=== PATIENT | female | born 1990 | race Caucasian/White ===

== ENCOUNTER 2023-03-05 14:31 | Emergency (ER) | payer MEDICAID ==
[2023-03-05] MEDS ORDERED: DEXAMETHASONE 10 MG/ML VIAL IVP STA (15:15)
[2023-03-05] MEDS ORDERED: HYDROmorphone 1 MG/ML CARPUJECT IVP STA ×2 (15:15→16:54)
[2023-03-05] MEDS ORDERED: methocarbamoL 500 MG TABLET PO STA (15:15)
[2023-03-05] MEDS ORDERED: KETOROLAC 30 MG/ML VIAL IVP STA (15:15)
--- NOTE | 2023-03-05 15:22 | ED Physician Documentation ---
PD HPI BACK PAIN - Stated complaint Stated Complaint: BACK PX - Chief complaint Chief Complaint: Back Pain - History obtained from History obtained from: Patient - History of Present Illness Timing - onset: Today Timing - duration: Hours (1) Timing - details: Abrupt onset Pain level max: 9 Pain level now: 9 Location: Mid Quality: Pain, Spasm Associated symptoms: No: Fever, Weakness, Numbness, Incontinent of urine, Unable to urinate, Hematuria, Incontinent of stool Worsened by: Movement, Lifting Contributing factors: Lifting, Twisting. No: Anticoagulated, Cancer, IVDA - Additional information Additional information: Patient is a 33-year-old female who presents to the emergency department with right-sided mid back pain. She states that she was moving a dresser today that had a record player and it when she felt a sharp pain in her back. No loss of bowel or bladder control. No fevers. No headache, no neck or other back pain. 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 : Chronic bladder infection HEENT: None Psych: None Musculoskeletal: None Derm: None - Past Surgical History Past Surgical History: Yes General: Appendectomy /CIRCUS PERFORMER: Hysterectomy HEENT: Tonsil/Adenoidectomy, Other - Present Medications Home Medications: Ambulatory Orders Medication Instructions Recorded Confirmed Albuterol Sulfate [Proair Hfa 1 - 2 puffs INH Q4H PRN 04/15/20 04/15/20 Inhaler] Budesonide/Formoterol Fumarate 0 puffs 04/29/21 [Symbicort 80-4.5 Mcg Inhaler] Ondansetron Odt [Zofran] 4 mg TL Q6H PRN #10 tablet 04/29/21 Oxycodone HCl/Acetaminophen 1 - 2 each PO Q6H PRN #14 tablet 04/29/21 [Percocet 5-325 mg Tablet] Meloxicam [Mobic] 7.5 mg PO BID PRN #20 tablet 03/05/23 Oxycodone HCl/Acetaminophen 1 - 2 each PO Q6H PRN #14 tablet 03/05/23 [Percocet 5-325 mg Tablet] MDD 6 tabs methocarbamoL [Robaxin] 500 mg PO Q6H PRN #20 tablet 03/05/23 methylPREDNISolone [Medrol] 4 mg PO DAILY #1 each 03/05/23 - Allergies Allergies/Adverse Reactions: Allergies Allergy/AdvReac Type Severity Reaction Status Date / Time No Known Drug Allergies Allergy Verified 02/04/23 10:28 - Social History Does the pt smoke?: No Smoking Status: Never smoker Does the pt drink ETOH?: No Does the pt have substance abuse?: Yes - Immunizations Immunizations are current?: Yes PD ED PE NORMAL - Vitals Vital signs reviewed: Yes - General General: Alert and oriented X 3, No acute distress - HEENT HEENT: PERRL, Moist mucous membranes - Neck Neck: Supple, no meningeal sign - Cardiac Cardiac: RRR, Strong equal pulses - Respiratory Respiratory: No respiratory distress, Clear bilaterally - Abdomen Abdomen: Soft, Non tender, Non distended - Back Back: Other (No midline tenderness to palpation or percussion. No step-off or deformity. Paraspinal spasm mid to upper lumbar/lower thoracic area. Right greater than left.) - Derm Derm: Warm and dry - Extremities Extremities: No edema, No calf tenderness / cord - Neuro Neuro: Alert and oriented X 3, third helper 2-12 intact, No motor deficit, No sensory deficit, Normal speech, Other (Normal bilateral lower extremity patellar and ankle jerk reflexes. Normal great toe extension bilaterally. no saddle anesthesia) - Psych Psych: Normal mood, Normal affect Results - Vitals Vitals: Vital Signs - 24 hr 03/05/23 03/05/23 03/05/23 14:34 14:40 16:40 Temperature 37 C 37.0 C Heart Rate 80 80 80 Respiratory 20 20 16 Rate Blood Pressure 147/104 H 147/100 H 130/88 H O2 Saturation 98 98 100 03/05/23 18:00 Temperature 36.8 C Heart Rate 66 Respiratory 16 Rate Blood Pressure 130/90 H O2 Saturation 100 Oxygen O2 Source Room air - Rads (name of study) CT T spine Relevant Findings:: Final report received, See rad report CT L spine Relevant Findings:: Final report received, See rad report PD Medical Decision Making - ED course Complexity details: reviewed results, re-evaluated patient, considered differential (No cauda equina, no spinal epidural abscess, no fracture, no aortic dissection or evidence of aneursym rupture), d/w patient, d/w family ED course: No acute findings on CT of the thoracic spine or lumbar spine. Pain was well controlled in the emergency department and patient is able to ambulate well. No evidence of cauda equina, epidural abscess. CT scans were ordered because the patient could not stand for x-rays and could not move to tolerate x-ray positioning. We will place on pain medication, muscle relaxants and steroids at home and have her follow-up with her PCP for further care. Patient counseled regarding signs and symptoms for which I believe and urgent re-evaluation would be necessary. Patient with good understanding of and agreement to plan and is comfortable going home at this time This document was made in part using voice recognition software. While efforts are made to proofread this document, sound alike and grammatical errors may occur. Departure - Departure Disposition: 01 Home, Self Care Clinical Impression: Back spasm Back pain Qualifiers: Back pain location: back pain in other location Chronicity: acute Qualified Code(s): M54.9 - Dorsalgia, unspecified Condition: Good Instructions: ED Neck Back Pain General Follow-Up: your,doctor in 1 week [Other] Prescriptions: methylPREDNISolone [Medrol] 4 mg PO DAILY #1 each Meloxicam [Mobic] 7.5 mg PO BID PRN #20 tablet PRN Reason: Pain Oxycodone HCl/Acetaminophen [Percocet 5-325 mg Tablet] 1 - 2 each PO Q6H PRN #14 tablet MDD 6 tabs PRN Reason: pain methocarbamoL [Robaxin] 500 mg PO Q6H PRN #20 tablet PRN Reason: muscle spasm Comments: Your prescriptions were sent to [facility] in [place]. Please follow-up with your doctor as needed for further care. This should improve over the next few days. Continue to gently stretch your back at home. Ice and heat may help as well. Your CT scan does not show any acute abnormalities today. If your symptoms persist, your doctor may want to pursue an MRI. I am prescribing a short course of narcotic pain medication for you. These are potentially dangerous and addictive medications that should be used carefully. These medications may constipate you. Take an behj-daf-xugavev stool softener (docusate) twice daily with plenty of water while taking these medications. If you go 24 hours without a bowel movement, take yinh-bur-krzyuxb miralax, per package instructions. Do not drink or drive while taking these medications. If you received narcotic or sedating medications while in the emergency department, do not drive for 24 hours. Store this medication in a safe, secure place and out of reach of children. It is a violation of federal law to give or sell this medication to another person or to use in a manner other than prescribed. The ED will not refill narcotic prescriptions, including prescriptions lost or stolen. To dispose of unwanted medications: 1. [facility] [address] in [place] has a medication drop box. They accept prescription medications (in pill form) Tuesday through Tuesday 9:00 a.m. to 5:00 p.m. 2. The [facility] [employer] accepts prescription medications (in pill form only) for disposal year round. Call for more information. 3. Contact the [facility] for the next [facility] sponsored prescription drug collection event. , [phone], or [phone]; Discharge Date/Time: 03/05/23 19:17
[2023-03-05 16:48] VITALS: O2SAT 100
--- NOTE | 2023-03-05 18:28 | CT Report ---
PROCEDURE: CT thoracic spine without contrast INDICATIONS: back pain, R mid back T10-L2 TECHNIQUE: Noncontrast 3 mm thick sections acquired through the region of interest in the thoracic spine. Sagit annita and coronal reformats were then constructed. For radiation dose reduction, the following was used : automated exposure control, adjustment of mA and/or kV according to patient size. COMPARISON: None. FINDINGS: Image quality: Excellent. Bones: There is normal overall bony alignment. No acute vertebral body compression fractures. No s uspicious sclerotic or lytic bony lesions. Central osseous canal is of normal overall caliber. Soft tissues: No paravertebral masses or hematomas. Visualized posteromedial lungs appear clear. IMPRESSION: Normal CT thoracic spine Reviewed by: Lemuel Abdalla MD on 03/05/2023 5:27 PM ALEJANDRO Approved by: Lemuel Abdalla MD on 03/05/2023 5:27 PM ALEJANDRO Station ID: [id number]
--- NOTE | 2023-03-05 18:28 | CT Report ---
PROCEDURE: CT lumbar spine without contrast INDICATIONS: back pain, R mid back T10-L2 TECHNIQUE: Noncontrast 3 mm thick sections acquired from the T12 level to the sacrum. Sagittal and coronal refo rmats were constructed. For radiation dose reduction, the following was used: automated exposure co ntrol, adjustment of mA and/or kV according to patient size. COMPARISON: None. FINDINGS: Image quality: Excellent. Bones: There is normal bony alignment. No acute vertebral body compression fractures. No suspiciou s lytic or blastic bony lesions. Central spinal caliber is of normal overall caliber. No pars defec ts. At the disc levels, no CT evidence of disc protrusion or significant canal stenosis. Soft tissues: No retroperitoneal masses or hematomas. Visualized aorta is normal in caliber. IMPRESSION: Normal CT of the lumbar spine Reviewed by: Lemuel Abdalla MD on 03/05/2023 5:26 PM ALEJANDRO Approved by: Lemuel Abdalla MD on 03/05/2023 5:26 PM AKDT Station ID: [id number]
[2023-03-05 18:42] VITALS: BP 130/90
[2023-03-05] MEDS ORDERED: oxyCODONE/ACET 5/325 Prepack 4 PO STA (18:53)
== END 2023-03-05 19:17 | disposition home or self-care (01) ==
LOC: ED 14:31
DX: M62.830 Muscle spasm of back (principal)
CPT/HCPCS: 72128; 72131; 96374; 96375; 96376; 99283; 99284; A9270; J1170

== ENCOUNTER 2023-07-08 08:00 | Outpatient (CLI) | payer MEDICAID ==
[2023-07-08 12:29] LABS: BILIRUBIN,URINE NEGATIVE (NEGATIVE); GLUCOSE, URINE (UA) NEGATIVE (NEGATIVE); KETONES,URINE (UA) NEGATIVE (NEGATIVE); LEUKOCYTE ESTERASE, URINE NEGATIVE (NEGATIVE); NITRITE,URINE NEGATIVE (NEGATIVE); OCCULT BLOOD,URINE NEGATIVE (NEGATIVE); PH,URINE 6.5 PH (5.0-7.5); PROTEIN,URINE NEGATIVE (NEGATIVE); UROBILINOGEN,URINE 0.2 (NORMAL) E.U./dL (NORMAL)
[2023-07-08 13:10] LABS: BACTERIA,URINE Moderate /HPF (None Seen); CLARITY,URINE SL. CLOUDY (CLEAR); RBC,URINE None Seen /HPF (0-5); SQUAMOUS EPITHELIAL CELL,UR MANY Squamous (<= Few); WBC,URINE 0-3 /HPF (0-5)
== END 2023-07-08 23:59 | disposition home or self-care (01) ==
LOC: LAB.WCP 08:00
PROVIDERS: ATTEND Physician Assistant
DX: R10.2 Pelvic and perineal pain (principal)
CPT/HCPCS: 81001; 87086

== ENCOUNTER 2023-07-19 09:47 | Outpatient (CLI) | payer MEDICAID | END 2023-07-19 09:48 | disposition home or self-care (01) | LOC: LAB.N 09:47 | PROVIDERS: ATTEND Physician Assistant | DX: R10.2 Pelvic and perineal pain (principal) | CPT/HCPCS: 87077; 87086; 87181 ==

== ENCOUNTER 2023-08-16 09:19 | Outpatient (CLI) | payer MEDICAID ==
[2023-08-16] MEDS: ALBUTEROL 1 PUFF INH STA (10:54)
== END 2023-08-16 09:20 | disposition home or self-care (01) ==
LOC: RT 09:19
PROVIDERS: ATTEND Physician Assistant
DX: J45.50 Severe persistent asthma, uncomplicated (principal)
CPT/HCPCS: 94060; 94729

== ENCOUNTER 2023-10-03 11:50 | Outpatient (CLI) | payer MEDICAID ==
--- NOTE | 2023-10-03 14:05 | XRAY Report ---
PROCEDURE: Chest 2V INDICATIONS: SHORTNESS OF BREATH TECHNIQUE: 2 views of the chest were acquired. COMPARISON: Thoracic CT 03/05/2023. FINDINGS: Surgical changes and devices: None. Lungs and pleura: No pleural effusions or pneumothorax. Lungs are clear. Mediastinum: Mediastinal contours appear normal. Heart size is normal. Bones and chest wall: No suspicious bony lesions. Overlying soft tissues appear unremarkable. IMPRESSION: No acute cardiopulmonary process. Reviewed by: Shabbir Andrew MD on 10/03/2023 2:03 PM PDT Approved by: Shabbir Andrew MD on 10/03/2023 2:03 PM PDT Station ID: [id number]
== END 2023-10-03 11:51 | disposition home or self-care (01) ==
LOC: DI 11:50
PROVIDERS: ATTEND Physician Assistant
DX: R06.02 Shortness of breath (principal)

== ENCOUNTER 2023-11-29 13:50 | Outpatient (CLI) | payer MEDICAID ==
--- NOTE | 2023-11-29 17:34 | XRAY Report ---
PROCEDURE: Wrist 3+V RT INDICATIONS: FOREARM PAIN, RIGHT TECHNIQUE: 3 views of the wrist were acquired. COMPARISON: None. FINDINGS: Bones: No fractures or dislocations. No suspicious bony lesions. Soft tissues: No suspicious soft tissue calcifications or masses. IMPRESSION: No acute bony abnormality. Reviewed by: Hollis Whiting MD on 11/29/2023 5:33 PM PDT Approved by: Hollis Whiting MD on 11/29/2023 5:33 PM PDT Station ID: [id number]
--- NOTE | 2023-11-29 17:35 | XRAY Report ---
PROCEDURE: Forearm RT INDICATIONS: FOREARM PAIN, RIGHT TECHNIQUE: 2 views of the forearm were acquired. COMPARISON: None. FINDINGS: Bones: No fractures or dislocations. No suspicious bony lesions. Soft tissues: No suspicious soft tissue calcifications or masses. IMPRESSION: No acute bony abnormality. Reviewed by: Hollis Whiting MD on 11/29/2023 5:33 PM PDT Approved by: Hollis Whiting MD on 11/29/2023 5:33 PM PDT Station ID: [id number]
== END 2023-11-29 15:37 | disposition home or self-care (01) ==
LOC: DI.N 13:50
PROVIDERS: ATTEND Physician Assistant Medical
DX: M79.631 Pain in right forearm (principal); M25.531 Pain in right wrist

== ENCOUNTER 2023-11-29 15:55 | Emergency (ER) | payer MEDICAID ==
[2023-11-29 16:05] VITALS: O2SAT 100
--- NOTE | 2023-11-29 17:45 | ED Physician Documentation ---
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 Gradual onset of pain in dorsal wrist c/w teonditis. No impactful injury, so doubt fracture/bone lesion.). No: Fall, Twist Timing - onset: How many weeks ago ( - 06/28) Timing - details: Gradual onset, Still present Worsened by: Moving, Palpating (dorsal wrist) Associated symptoms: Swelling (feels some swelling dorsal wrist. No redness nor berna. tender dorsal wrist and much in volar/carpal tunnel area. some feeling of swelling dorsally. Not tender base of thumb. ROM fo the wrist limited for extension, iwth worse pain against resistance.). 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 : Chronic bladder infection HEENT: None Psych: None Musculoskeletal: None Derm: None - Past Surgical History Past Surgical History: Yes General: 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: Hysterectomy HEENT: Tonsil/Adenoidectomy, Other - Present Medications Home Medications: Ambulatory Orders Medication Instructions Recorded Confirmed Albuterol Sulfate [Proair Hfa 1 - 2 puffs INH Q4H PRN 04/15/20 04/15/20 Inhaler] Budesonide/Formoterol Fumarate 0 puffs 04/29/21 [Symbicort 80-4.5 Mcg Inhaler] Ondansetron Odt [Zofran] 4 mg TL Q6H PRN #10 tablet 04/29/21 Oxycodone HCl/Acetaminophen 1 - 2 each PO Q6H PRN #14 tablet 04/29/21 [Percocet 5-325 mg Tablet] Meloxicam [Mobic] 7.5 mg PO BID PRN #20 tablet 03/05/23 Oxycodone HCl/Acetaminophen 1 - 2 each PO Q6H PRN #14 tablet 03/05/23 [Percocet 5-325 mg Tablet] MDD 6 tabs methocarbamoL [Robaxin] 500 mg PO Q6H PRN #20 tablet 03/05/23 methylPREDNISolone [Medrol] 4 mg PO DAILY #1 each 03/05/23 HYDROcod/ACETAM 5/325 [[place] 5/325] 1 ea PO Q6H PRN #15 tablet 11/29/23 Lidocaine Patch 5% [Lidoderm Patch] 1 patch TOP DAILY PRN #10 patch 11/29/23 Meloxicam [Mobic] 7.5 mg PO BID 10 Days #20 tablet 11/29/23 - Allergies Allergies/Adverse Reactions: Allergies Allergy/AdvReac Type Severity Reaction Status Date / Time No Known Drug Allergies Allergy Verified 11/29/23 16:04 - Social History Does the pt smoke?: No Smoking Status: Never smoker Does the pt drink ETOH?: No Does the pt have substance abuse?: Yes - Immunizations Immunizations are current?: Yes PD ED PE NORMAL - Vitals Vital signs reviewed: Yes - General General: Alert and oriented X 3, Well developed/nourished - Cardiac Cardiac: RRR, No murmur - Respiratory Respiratory: No respiratory distress, Clear bilaterally - Derm Derm: Normal color, Warm and dry - Extremities Extremities: No edema, Other (dorsal wrist and forearm with some soft tissue swelling. Not tender volar wrist. No edema in fingers. Good cap refill. Minimal crepitance feeling in forearm with extension c/w tendonitis. ) - Neuro Neuro: Alert and oriented X 3, No motor deficit, No sensory deficit, Normal speech Results - Vitals Vitals: Oxygen O2 Source Room air - Rads (name of study) duple US right arm Relevant Findings:: Prelim report reviewed (no DVT), See rad report PD Medical Decision Making - ED course Complexity details: reviewed results (dulplex US of right upper arm ithout any DVT. ), considered differential (clinically sounds like tendonits of wrist. Pain radiating up to the upper arm and shoudler without tenderness there is presumed nerve irritation. No edema in upper arm nor axillary tenderness. Low suspicion for DVT by me but sent for US by Walk In. ), d/w patient Departure - Departure Disposition: 01 Home, Self Care Clinical Impression: Right wrist tendonitis Condition: Stable Record reviewed to determine appropriate education?: Yes Follow-Up: [facility] [Provider Group] Prescriptions: Lidocaine Patch 5% [Lidoderm Patch] 1 patch TOP DAILY PRN #10 patch PRN Reason: pain Meloxicam [Mobic] 7.5 mg PO BID 10 Days #20 tablet HYDROcod/ACETAM 5/325 [[place] 5/325] 1 ea PO Q6H PRN #15 tablet PRN Reason: Pain Comments: Your ultrasound does not show any signs of clots. Clinically this sounds like some wrist tendinitis given the pain with motion and will crackly feel on movement. That will be the tendon not gliding smoothly through the sheath because of inflammation. Use the wrist splint during the day and with activity.. Gentle range of motion periodically with the wrist. I would treat with a combination of anti-inflammatories. We can use a long- acting twice daily called meloxicam with food. You can also apply lidocaine patch to the area to help with some of the local pain. Activity as tolerated but you may want to avoid heavy use of it over the next several days to week. Add Tylenol 500 to 650 mg 4 times daily for pain. Use hydrocodone/acetaminophen if needed for worse pain. Follow-up with Ortho your primary care if not improved over the next week or so and resolved within 1 to 2 weeks. There are further treatments that are potentially available if it is not improving with just this. I sent your prescriptions to your preferred pharmacy. I am prescribing a short course of narcotic pain medication for you. These are potentially dangerous and addictive medications that should be used carefully. These medications may constipate you. Take an bxcl-eui-fpfoncq stool softener such as docusate twice daily with plenty of water while taking these medications. If you go 24 hours without a bowel movement, take agye-jgt-xfxrfqw MiraLAX, per package instructions. Do not drink or drive while taking these medications. If you received narcotic or sedating medications while in the emergency department do not drive for 24 hours. Store this medication in a safe, secure place and out of reach of children. It is a violation of federal law to give or sell this medication to another person or to use in a manner other than prescribed. The ED will not refill narcotic prescriptions, including prescriptions lost or stolen. You can dispose of unwanted medications at the [facility]'s office or at several pharmacies such as [facility]. Forms: PCP List Discharge Date/Time: 11/29/23 20:19
[2023-11-29] MEDS: HYDROcod/ACETAM 5/325 MG TABLET PO STA (18:19)
[2023-11-29] MEDS: NAPROXEN 250 MG TABLET PO STA (18:19)
[2023-11-29 20:26] VITALS: BP 138/73
--- NOTE | 2023-11-29 20:40 | Ultrasound Report ---
PROCEDURE: Duplex Ext Veins Right INDICATIONS: wrist pain with now up to shoulder. no edema TECHNIQUE: Real-time imaging, as well as color and pulse Doppler interrogation, were performed of the lower extr emity deep veins from the inguinal ligament to the popliteal fossa. Attempted visualization of the ca lf veins was performed. COMPARISON: None. FINDINGS: The deep veins are normally compressible, and free of intraluminal thrombus. Color and pu lse Doppler demonstrate normal phasic intraluminal flow. There is normal augmentation response to di stal compression maneuver. IMPRESSION: No deep venous thrombosis of the visualized right upper extremity. Reviewed by: Marcel Rodriguez MD on 11/29/2023 8:38 PM PDT Approved by: Marcel Rodriguez MD on 11/29/2023 8:38 PM PDT Station ID: [id number]
== END 2023-11-29 20:19 | disposition home or self-care (01) ==
LOC: ED 15:55
DX: M77.8 Other enthesopathies, not elsewhere classified (principal); M79.631 Pain in right forearm; M25.531 Pain in right wrist
CPT/HCPCS: 73090; 73110; 93971; 99283; 99284; A9270